=== PATIENT | male | born 1990 | race Hispanic/Latino ===

== ENCOUNTER 2017-10-05 11:22 | Outpatient (CLI) | payer OTHER | END 2017-10-05 11:23 | disposition home or self-care (01) | LOC: BICRAD 11:22 | PROVIDERS: ATTEND Nurse Practitioner Family | DX: R05 Cough (principal) | CPT/HCPCS: 71045 ==

== ENCOUNTER 2019-10-28 20:59 | Emergency (ER) | payer SELFPAY ==
[2019-10-28] MEDS ORDERED: Lidocaine 1% (PF) 30 ML VIAL ONE (21:18)
[2019-10-28] MEDS ORDERED: Adacel (T-DAP) 0.5 ML SYRINGE ONE (21:25)
[2019-10-28] MEDS ORDERED: Bacitracin 1 PK ONE (22:22)
== END 2019-10-28 22:33 | disposition home or self-care (01) ==
LOC: ERS 20:59
DX: S61.011A Laceration without foreign body of right thumb without damage to nail, initial encounter (principal); Z23 Encounter for immunization; W22.8XXA Striking against or struck by other objects, initial encounter
CPT/HCPCS: 12002; 90471; 90715; J2001

== ENCOUNTER 2025-01-30 19:14 | Emergency (ER) | payer SELFPAY ==
[2025-01-30] MEDS ORDERED: Lidocaine 1% PF 5 ML VIAL ONE ×2 (19:35→19:37)
== END 2025-01-30 20:45 | disposition home or self-care (01) ==
LOC: ERS 19:14
DX: S61.011A Laceration without foreign body of right thumb without damage to nail, initial encounter (principal); W25.XXXA Contact with sharp glass, initial encounter
CPT/HCPCS: 12002; 99282